=== PATIENT | female | born 1985 | race Caucasian/White ===

== ENCOUNTER → 2022-10-13 14:05 | Outpatient (BNVA) | payer BC, SELFPAY | PROVIDERS: Family Provider Family Medicine; PCP Family Medicine; Visit Provider Nurse Practitioner Family | DX: E86.0 Dehydration (principal) | CPT/HCPCS: 80053; 85025 ==

== ENCOUNTER → 2022-11-01 09:02 | Outpatient (BNVA) | payer BC, SELFPAY | PROVIDERS: Family Provider Family Medicine; PCP Family Medicine; Visit Provider Nurse Practitioner Family | DX: E87.6 Hypokalemia (principal) | CPT/HCPCS: 80053 ==

== ENCOUNTER 2023-02-03 06:00 | Outpatient (RCR) | payer BC, SELFPAY | END 2023-02-08 23:59 | disposition home or self-care (01) | LOC: GPT 06:00 | PROVIDERS: Family Provider Family Medicine; PCP Family Medicine; Visit Provider Orthopaedic Surgery | DX: Z47.89 Encounter for other orthopedic aftercare (principal) | CPT/HCPCS: 97140; 97161 ==

== ENCOUNTER 2023-02-09 06:00 | Outpatient (RCR) | payer BC, SELFPAY | END 2023-03-10 23:59 | disposition home or self-care (01) | LOC: GPT 06:00 | PROVIDERS: Family Provider Family Medicine; PCP Family Medicine; Visit Provider Orthopaedic Surgery | DX: Z98.890 Other specified postprocedural states (principal) | CPT/HCPCS: 97110; 97112; 97140; 97530 ==

== ENCOUNTER → 2023-03-23 08:35 | Outpatient (BNVA) | payer BC, MEDICAID, SELFPAY | PROVIDERS: Family Provider Family Medicine; PCP Family Medicine; Visit Provider Nurse Practitioner Family | DX: R05.9 Cough, unspecified (principal); B34.9 Viral infection, unspecified | CPT/HCPCS: 87400; 87426 ==

== ENCOUNTER → 2023-08-30 12:07 | Outpatient (BNVA) | payer MEDICAID, SELFPAY | PROVIDERS: Family Provider Family Medicine; PCP Family Medicine; Visit Provider Nurse Practitioner Family | DX: R52 Pain, unspecified (principal); Z72.51 High risk heterosexual behavior; R30.0 Dysuria; E86.0 Dehydration | CPT/HCPCS: 81000; 81025; 86592; 87086; 87400; 87491; 87591 ==

== ENCOUNTER → 2023-09-06 16:20 | Outpatient (BNVA) | payer MEDICAID, SELFPAY | PROVIDERS: Family Provider Family Medicine; PCP Family Medicine; Visit Provider Specialist | DX: G43.711 Chronic migraine without aura, intractable, with status migrainosus (principal); F42.9 Obsessive-compulsive disorder, unspecified; R63.4 Abnormal weight loss; R11.10 Vomiting, unspecified; T14.8XXA Other injury of unspecified body region, initial encounter; K31.84 Gastroparesis | CPT/HCPCS: 36415; 80053; 82607; 82746; 84443; 85025; 85610 ==

== ENCOUNTER 2024-02-16 10:55 | Oncology outpatient (recurring) (ONCR) | payer BC, MEDICAID, SELFPAY ==
[2024-02-16 11:00] VITALS: BP 143/92; PULSE 77; RESP 16; TEMP 36.6; O2SAT 98
[2024-02-16] MEDS: diphenhydrAMINE 50 mg/mL SDV 1mL 25 MG IVP (11:25)
[2024-02-16] MEDS: ondansetron 2 mg/ML SDV 2 mL 4 MG IVP ×2 (11:26→16:24)
[2024-02-16] MEDS: dihydroergotamine 1 mg/mL Inj 0.5 MG IVP ×6 (11:40→13:29)
[2024-02-16] MEDS: valproic acid inj 500 MG in sodium chloride 0.9% 50 ML 55 MG IV ×2 (13:54→15:07)
--- NOTE | 2024-02-16 15:14 | PC.NURSE ---
Patient asked if she would need a ride after DHE treatment. Let her know her know if could make her dizzy. Recommend she contact someone to come and drive her home. She contacted her parents and told them she would be in touch if she need a ride. After giving her the 1st dose of Depacon let her know she would feel about the same if the treatment didn't work if she wanted to call her ride. She declined.
[2024-02-16] MEDS: ketorolac 30 mg/mL INJ IVP (16:24)
[2024-02-16 16:34] VITALS: BP 147/95; PULSE 64; RESP 16; TEMP 36.9; O2SAT 100
== END 2024-03-10 23:59 | disposition home or self-care (01) ==
PROVIDERS: Family Provider Family Medicine; PCP Family Medicine; Visit Provider Specialist
DX: G43.011 Migraine without aura, intractable, with status migrainosus (principal); Z79.899 Other long term (current) drug therapy
CPT/HCPCS: 96365; 96375; 96376; J1110; J1200; J1885; J2405; J3490

== ENCOUNTER 2024-03-05 15:19 | Emergency (ER) | payer MEDICAID, SELFPAY ==
[2024-03-05 15:23] VITALS: BP 151/106; PULSE 98; RESP 16; TEMP 37.2; O2SAT 98
--- NOTE | 2024-03-05 15:49 | W.ED.PSYCHS ---
HPI - Psych General: Chief Complaint: Psychiatric Symptoms Stated Complaint: mhe Time Seen by Provider: 03/05/24 15:24 Source: patient and police Mode of arrival: ambulatory Limitations: no limitations History of Present Illness: Patient is a 38-year-old female presents to ED today after she was brought by police. Patient tells me that she is enrolled in some type of save/subscription plan for her perfume through [employer]. She states she has to have it sent to her ex-'s mailbox because she only has a PO address. She states she went to his mailbox today and found the post office packing slip for her perfume so she took to the post office to parts picker and accidentally picked up the wrong package (a box of [employer]). She contacted her ex- to let him know and he reportedly called the police to press charges for stealing his mail. She states they had a very messy divorce and do not get along well. Police came to her door and told her they were arresting her and taking her to detention to book her. According to police affidavit she made suicidal statements following news that she was going to be arrested. She reportedly contacted her ex mother in law because she currently is watching her son and made a statement to her as well. I personally contacted ex mother in law (Lori) who told me that patient was crying and stated if I have to go to detention I'm going to kill myself . Upon arrival to the emergency department patient tells me she is not suicidal. She states she has never been suicidal nor has she ever attempted suicide. MD complaint: other (made suicidal statement after learning she was going to be arrested) Onset (ago): hour(s) History of same: No Relieving factors: none Exacerbating factors: other (stress) Context: significant life stressor (learning she was getting arrested ) Associated psychiatric symptoms: none Associated symptoms: Reports no associated symptoms; Deny auditory hallucinations, visual hallucinations, homicidal ideation or suicidal ideation Treatments prior to arrival: none Related Data Home Medications Medication Instructions Recorded Confirmed aripiprazole 2 mg tablet 2 mg PO DAILY 01/12/24 03/05/24 tizanidine 4 mg tablet 4 mg PO PRN muscle spasm 01/12/24 03/05/24 alprazolam 1 mg tablet 1 mg PO TID PRN Anxiety 02/16/24 03/05/24 L norgest/E estradiol-E estrad 0.1 1 tab PO DAILY 03/05/24 03/05/24 mg-20 mcg (84)/10 mcg (7) tabs,3mos (Camrese Lo) diazepam 10 mg tablet 10 mg PO BID 03/05/24 03/05/24 meloxicam 15 mg tablet 15 mg PO DAILY 03/05/24 03/05/24 ofloxacin 0.3 % ear drops 5 drp otic (ear) BID 03/05/24 03/05/24 Previous Rx's Medication Instructions Recorded onabotulinumtoxinA 100 unit 155 unit IM .[id number] #2 ea 10/05/23 solution for injection (Botox) gabapentin 300 mg capsule 300 mg PO TID #90 caps 01/12/24 oxycodone 5 mg tablet 5 mg PO QID PRN pain 4 weeks #120 03/04/24 tabs prochlorperazine maleate 10 mg 10 mg PO Q6H PRN nausea and 03/04/24 tablet vomiting #20 tabs Allergies Allergy/AdvReac Type Severity Reaction Status Date / Time Proton Pump Inhibitors Allergy Severe migrains Verified 02/16/24 10:35 hydrocodone Allergy Mild ADR-Itching Verified 02/16/24 10:35 Review of Systems Psych: Denies: hopelessness, loss of interest, visual hallucinations, auditory hallucinations, suicidal ideation or homicidal ideation [facility] ED PFSH: Social History Smoking and tobacco/nicotine status: never used tobacco/nicotine Alcohol intake: never Physical Exam Const: COMMON NORMALS: no acute distress, average body habitus, patient oriented x3, no limitations, healthy appearing, alert and well nourished Neuro: BRYAN COMA SCALE: document GCS findings Bryan coma scale eye opening: Spontaneous Bryan coma scale verbal response: Orientated [place] coma scale motor response: Obey commands Bryan coma scale total score: 15 COMMON NORMALS: patient oriented x3 and gait normal SENSORIUM/ORIENTATION: Yes alert Psych: COMMON NORMALS: mental status grossly normal, Normal thought process present, cooperative, normal affect, speech normal, activity/motor behavior normal, denies hallucinations, denies homicidal ideation and denies suicidal ideation APPEARANCE: Yes grossly normal ATTITUDE: Yes calm ACTIVITY/MOTOR BEHAVIOR: Yes appropriate eye contact SPEECH: Yes normal speech MOOD & AFFECT: Yes euthymic mood THOUGHT PROCESS: Normal thought process present THOUGHT CONTENT: Yes Normal thought content present ATTENTION/CONCENTRATION: Yes attention grossly intact and Yes concentration grossly intact MEMORY/COGNITION: Yes memory grossly intact and Yes cognition grossly intact INSIGHT: Good insight present (Psych) JUDGEMENT: Good judgement present (Psych) Course Consultations: Consultation #1: Dr. Oliver-reviewed case and affidavit and feels she can be discharged Vital Signs: Vital signs: Vital Signs Temperature 99.0 F 03/05/24 15:23 Pulse Rate 98 03/05/24 15:23 Respiratory Rate 16 03/05/24 15:23 Blood Pressure 151/106 03/05/24 15:23 Pulse Oximetry 98 03/05/24 15:23 Oxygen Delivery Me thod Room Air 03/05/24 15:23 MDM - Psych Medical Decision Making Discussed case extensively with Dr. Oliver and reviewed affidavit. We both feel patient is extremely low risk. She is stating she is not suicidal. She states she has never been suicidal or ever attempted suicide. She has no previous history of depression. Looking through our documentation she has no previous [facility] visits or psychiatric hospitalizations. At this time psychiatry recommendation was that she be discharged home. Return precautions discussed. Medical Records I reviewed the patient's medical records. Lab Data I reviewed the patient's lab results. 03/05/24 15:56 03/05/24 15:56 Laboratory Results WBC 13.59 10^3/uL (3.29-11.43) H 03/05/24 15:56 RBC 4.75 10^6/uL (3.85-5.65) 03/05/24 15:56 Hgb 12.90 g/dL (11.27-16.99) 03/05/24 15:56 Hct 40.9 % (36-47) 03/05/24 15:56 MCV 86.1 fl (85-98) 03/05/24 15:56 MCH 27.2 pg (27-33) 03/05/24 15:56 MCHC 31.5 g/dL (30-55) 03/05/24 15:56 RDW 15.1 % (12.1-15.1) 03/05/24 15:56 Plt Count 636 10^3/cmm (157-399) H 03/05/24 15:56 MPV 9.7 fL (7.4-10.4) 03/05/24 15:56 Neut % (Auto) 84.1 % 03/05/24 15:56 Lymph % (Auto) 8.5 % 03/05/24 15:56 [place] % (Auto) 2.0 % 03/05/24 15:56 Eos % (Auto) 0.0 % 03/05/24 15:56 Baso % (Auto) 0.4 % 03/05/24 15:56 Neut # (Auto) 11.43 10^3/uL (1.8-7.7) H 03/05/24 15:56 Lymph # (Auto) 1.2 10^3/uL (0.8-4.8) 03/05/24 15:56 [place] # (Auto) 0.3 10^3/uL (0.2-0.9) 03/05/24 15:56 Eos # (Auto) 0.0 10^3/uL (0.0-0.8) 03/05/24 15:56 Baso # (Auto) 0.1 10^3/uL (0.0-0.1) 03/05/24 15:56 Nucleated RBC % (auto) 0 % 03/05/24 15:56 Nucleated RBCs # 0.0 /100WBC 03/05/24 15:56 No radiology studies performed this visit Discharge Plan Discharge Patient Disposition: Home Clinical Impression: Mental health-related complaint Condition: Stable Prescriptions: No Action aripiprazole 2 mg tablet 2 mg PO DAILY tizanidine 4 mg tablet 4 mg PO PRN gabapentin 300 mg capsule 300 mg PO TID Qty: 90 5RF alprazolam 1 mg tablet 1 mg PO TID PRN (Reason: Anxiety) Botox 100 unit recon soln 155 unit IM .[id number] Qty: 2 3RF Rx Instructions: Follow FDA protocol for migraines prochlorperazine maleate 10 mg tablet 10 mg PO Q6H PRN (Reason: nausea and vomiting) Qty: 20 2RF Rx Instructions: 1/2 to 1 every 6 hours prn nausea oxycodone 5 mg tablet 5 mg PO QID PRN (Reason: pain) 28 Days Qty: 120 0RF ofloxacin 0.3 % drops 5 drp otic (ear) BID diazepam 10 mg tablet 10 mg PO BID L norgest/e.estradiol-e.estrad [Camrese Lo] 0.1 mg-20 mcg (84)/10 mcg (7) tablets,dose pack,3 month 1 tab PO DAILY meloxicam 15 mg tablet 15 mg PO DAILY Discharge Orders: Discharge ED (Routine); Ordered 03/05/24 Ordered By: Tanja Lee Referrals: Glenn Parks DO [Primary Care Provider] - Activity Restrictions/Additional Instructions: As we discussed, if at any point you begin having thoughts of wanting to harm yourself or other people, please immediately return to the emergency department or contact 911. You may also utilize our Crisis Stabilization Center. Coding Level of Care Code ED Base Draw Operator for Kate Henry
[2024-03-05 16:18] LABS: Basophils # 0.1 10^3/uL (0.0-0.1); Basophils % 0.4 %; Hematocrit 40.9 % (36-47); Lymphocytes # 1.2 10^3/uL (0.8-4.8); Lymphocytes % 8.5 %; Mean Corpuscular HGB Conc 31.5 g/dL (30-55); Mean Corpuscular Hemoglobin 27.2 pg (27-33); Mean Corpuscular Volume 86.1 fl (85-98); Mean Platelet Volume 9.7 fL (7.4-10.4); Monocytes # 0.3 10^3/uL (0.2-0.9); Neutrophils # 11.43 10^3/uL (1.8-7.7); Neutrophils % 84.1 %; Nucleated Red Blood Cells % 0 %; Platelet Count 636 10^3/cmm (157-399); Red Blood Count 4.75 10^6/uL (3.85-5.65); Red Cell Distribution Width 15.1 % (12.1-15.1); White Blood Count 13.59 10^3/uL (3.29-11.43)
[2024-03-05 16:27] LABS: Alanine Aminotransferase 105 U/L (0-33); Albumin Level 4.4 g/dL (3.5-5.2); Alkaline Phosphatase 57 U/L (35-105); Anion Gap 15.6 (5-19); Aspartate Amino Transferase 46 U/L (0-32); Blood Urea Nitrogen 9 mg/dL (6-20); Calcium 8.8 mg/dL (8.5-10.5); Carbon Dioxide 29 mmol/L (22-29); Chloride 100 mmol/L (98-107); Creatinine Clr Calc Pharmacy 121.1801; Globulin 2.7 g/dL (1.3-4.6); Glomerular Filtration Rate 137.4 mL/min (90-130); Glucose 101 mg/dL (65-115); Osmolality Calculated 289 mOsm/kg (285-295); Potassium 4.6 mmol/L (3.5-5.1); Sodium 140 mmol/L (136-145); Total Bilirubin 0.2 mg/dL (0.15-1.2); Total Protein 7.1 g/dL (6.6-8.7)
[2024-03-05 16:28] LABS: Acetaminophen < 5.0 ug/mL (10-30); Alcohol Level < 10 mg/dL (0-10); Salicylate < 0.3 mg/dL (3-10)
[2024-03-05 16:29] LABS: HCG, Serum Qual Negative (Negative)
[2024-03-05 16:30] LABS: Amphetamines Screen Urine Negative (Negative); Barbiturates Screen Urine Negative (Negative); Benzodiazepines Screen Urine Positive (Negative); Cocaine Screen Urine Negative (Negative); Opiate Screen Urine Negative (Negative); PCP Screen Urine Negative (Negative); THC Screen Urine Positive (Negative)
== END 2024-03-05 16:52 | disposition home or self-care (01) ==
PROVIDERS: Emergency Provider Physician Assistant; Family Provider Family Medicine; PCP Family Medicine
DX: Z71.1 Person with feared health complaint in whom no diagnosis is made (principal)
CPT/HCPCS: 36415; 80053; 80306; 80307; 84703; 85025; 99283

== ENCOUNTER 2024-07-03 08:49 | Outpatient (CLI) | payer MEDICAID, SELFPAY ==
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
== END 2024-07-03 08:50 | disposition home or self-care (01) ==
PROVIDERS: PCP Nurse Practitioner Family; Visit Provider Nurse Practitioner
DX: S13.140A Subluxation of C3/C4 cervical vertebrae, initial encounter (principal); V89.2XXA Person injured in unspecified motor-vehicle accident, traffic, initial encounter; R93.7 Abnormal findings on diagnostic imaging of other parts of musculoskeletal system
CPT/HCPCS: 72040

== ENCOUNTER → 2024-11-30 12:38 | Outpatient (BNVA) | payer MEDICAID, SELFPAY | PROVIDERS: PCP Nurse Practitioner Family; Visit Provider Nurse Practitioner Family | DX: J02.9 Acute pharyngitis, unspecified (principal) | CPT/HCPCS: 87071; 87880 ==

== ENCOUNTER → 2024-12-24 10:30 | Outpatient (BNVA) | payer MEDICAID, SELFPAY | PROVIDERS: PCP Nurse Practitioner Family; Visit Provider Nurse Practitioner Family | DX: Z12.4 Encounter for screening for malignant neoplasm of cervix (principal) | CPT/HCPCS: 87624 ==

== ENCOUNTER → 2025-02-21 10:21 | Outpatient (BNVA) | payer MEDICAID, SELFPAY | PROVIDERS: PCP Nurse Practitioner Family; Visit Provider Nurse Practitioner Family | DX: N39.0 Urinary tract infection, site not specified (principal) | CPT/HCPCS: 81000; 87086 ==